=== PATIENT | female | born 1970 | race Caucasian/White ===

== ENCOUNTER → 2018-08-15 | Outpatient (CLI) | payer OTHER ==
[~2018-08-15] MED LIST: Ativan1 MG SL; ESCI5 PO; IBUP600 PO; Norco 5-325 Ta1 EACH PO; Percocet 5-3251 EACH PO; Zofran4 MG PO
[2018-08-15 11:19] LABS: CHOL/HDL RATIO 2.9; Cholesterol 270 mg/dL (50-200); HDL Cholesterol 92 mg/dL (>39); LDL/HDL RATIO 1.8; Low Density Lipoprotein Chol 164 mg/dL (0-110); Triglycerides 71 mg/dL (30-160); Very Low Density Lipoprot Chol 14 mg/dL (6-32)
== END | disposition home or self-care (01) ==
LOC: LAB SHORT 09:54 → LAB 09:54
PROVIDERS: Physician Assistant
DX: Z13.1 Encounter for screening for diabetes mellitus (principal); Z13.220 Encounter for screening for lipoid disorders
CPT/HCPCS: 80061; 83036

== ENCOUNTER 2020-01-03 09:57 | Day surgery (SDC) | payer OTHER ==
[~2020-01-03 09:57] MED LIST changes: +TRAZ50 PO
--- NOTE | 2020-01-03 11:19 | NUR ---
Ambulatory in Day SurgeryPatient states colon prep results clear. History, Chart, Medications and Allergies reviewed before start of procedure.Lungs clear T/O to Auscultation. Patient confirms NPO status and agrees with scheduled surgery. AT BEDSIDE.
--- NOTE | 2020-01-03 12:46 | NUR ---
01/03/20 1246 RONI CORTÉS History, Chart, Medications and Allergies reviewed before start of procedure.3-LEAD EKG REVIEWED WITH PHYSICIAN PRIOR TO START OF PROCEDURE.O2 VIA N/C INTACT THROUGHOUT SEDATION/PROCEDURE. PATIENT DETERMINED TO BE ASA APPROPRIATE FOR PROPOFOL SEDATION PRIOR TO START OF PROCEDURE BY DR. SANDERS. MONITOR INTACT WITH CONTINUOUS PULSE OXIMETRY AND INTERMITTENT BP.
--- NOTE | 2020-01-03 13:36 | NUR ---
Patient up to Ambulate independently. Gait steady. Discharge instructions reviewed with patient. Patient verbalizes understanding. Copy given to patient to take home. Discharged via wheelchair to private car for ride home.
== END 2020-01-03 13:42 | disposition home or self-care (01) ==
LOC: ORSCMMR 09:57 → ORD 11:00 → ORSCMMR 13:42
PROVIDERS: Internal Medicine Gastroenterology
PROC: 0DBN8ZX Excision of Sigmoid Colon, Via Natural or Artificial Opening Endoscopic, Diagnostic (ICD-10-PCS; principal; 2020-01-03 11:00)
DX: Z12.11 Encounter for screening for malignant neoplasm of colon (principal); K64.8 Other hemorrhoids; K64.4 Residual hemorrhoidal skin tags; F32.9 Major depressive disorder, single episode, unspecified; F17.210 Nicotine dependence, cigarettes, uncomplicated; Z79.899 Other long term (current) drug therapy
CPT/HCPCS: 88305; J2704; J7120

== ENCOUNTER → 2021-07-09 | Outpatient (CLI) | payer OTHER | LOC: LAB 13:26 → LAB SHORT 13:26 | DX: L08.9 Local infection of the skin and subcutaneous tissue, unspecified (principal) | CPT/HCPCS: 87070; 87075; 87205 ==

== ENCOUNTER 2023-02-23 19:47 | Emergency (ER) | payer OTHER, BC ==
[~2023-02-23] VITALS: Ht 172.7 cm; Wt 59.0 kg
[2023-02-23 20:16] LABS: BASOPHILS ABSOLUTE AUTO 0.03 K/mm3 (0.00-0.23); BASOPHILS PERCENT AUTO 0 % (0-2); EOSINOPHILS ABSOLUTE AUTO 0.22 K/mm3 (0.00-0.68); EOSINOPHILS PERCENT AUTO 2 % (0-6); Hematocrit 40.7 % (33.0-51.0); Hemoglobin 14.1 g/dL (11.5-16.0); IMMATURE GRAN ABSOLUTE AUTO 0.03 K/mm3 (0.00-0.10); IMMATURE GRAN PERCENT AUTO 0 % (0-1); LYMPHOCYTES ABSOLUTE AUTO 4.41 K/mm3 (0.84-5.20); LYMPHOCYTES PERCENT AUTO 35 % (21-46); MONOCYTES PERCENT AUTO 7 % (4-13); Mean Corpuscular HGB 31.4 pg (26.0-34.0); Mean Corpuscular HGB Conc 34.6 g/dL (31.5-36.5); Mean Corpuscular Volume 91 fL (80-100); Mean Platelet Volume 9.1 fL (9.1-12.4); NEUTROPHILS ABSOLUTE AUTO 7.14 K/mm3 (1.96-9.15); NEUTROPHILS PERCENT AUTO 56 % (41-73); Platelet Count 286 K/mm3 (150-400); RDW Standard Deviation 42.8 fL (35.1-46.3); Red Blood Cell Count 4.49 M/mm3 (3.80-5.20); White Blood Cell Count 12.73 K/mm3 (4.00-11.30)
[2023-02-23 20:47] LABS: Albumin, Blood 3.8 g/dL (3.4-5.0); Albumin/Globulin Ratio 1.1 (0.8-1.8); Bilirubin, Total 0.4 mg/dL (0.1-1.0); Calcium, Blood 9.4 mg/dL (8.5-10.1); Creatinine, Blood 0.61 mg/dL (0.40-1.00); Globulin, Blood 3.6 g/dL (2.2-4.0); Potassium, Blood 3.7 mmol/L (3.5-5.5); Total Protein, Blood 7.4 g/dL (6.4-8.2)
== END 2023-02-23 23:31 | disposition home or self-care (01) ==
LOC: ER 19:47
PROVIDERS: Emergency Medicine
DX: Z77.098 Contact with and (suspected) exposure to other hazardous, chiefly nonmedicinal, chemicals (principal); Z87.891 Personal history of nicotine dependence; Z88.5 Allergy status to narcotic agent; Z79.899 Other long term (current) drug therapy
CPT/HCPCS: 36415; 80053; 85025; 93005; 93010; 99284-25

== ENCOUNTER 2023-05-24 14:05 | Emergency (ER) | payer OTHER ==
[~2023-05-24] VITALS: Ht 172.7 cm; Wt 59.0 kg
[2023-05-24 14:49] LABS: BASOPHILS ABSOLUTE AUTO 0.03 K/mm3 (0.00-0.23); BASOPHILS PERCENT AUTO 0 % (0-2); EOSINOPHILS ABSOLUTE AUTO 0.14 K/mm3 (0.00-0.68); EOSINOPHILS PERCENT AUTO 1 % (0-6); Hematocrit 41.2 % (33.0-51.0); Hemoglobin 14.5 g/dL (11.5-16.0); IMMATURE GRAN ABSOLUTE AUTO 0.03 K/mm3 (0.00-0.10); IMMATURE GRAN PERCENT AUTO 0 % (0-1); LYMPHOCYTES ABSOLUTE AUTO 3.94 K/mm3 (0.84-5.20); LYMPHOCYTES PERCENT AUTO 33 % (21-46); MONOCYTES PERCENT AUTO 5 % (4-13); Mean Corpuscular HGB 31.9 pg (26.0-34.0); Mean Corpuscular HGB Conc 35.2 g/dL (31.5-36.5); Mean Corpuscular Volume 91 fL (80-100); NEUTROPHILS ABSOLUTE AUTO 7.36 K/mm3 (1.96-9.15); NEUTROPHILS PERCENT AUTO 61 % (41-73); Platelet Count 304 K/mm3 (150-400); RDW Coefficient Variation 13.1 % (11.7-14.2); RDW Standard Deviation 43.5 fL (35.1-46.3); Red Blood Cell Count 4.55 M/mm3 (3.80-5.20)
[2023-05-24 15:01] LABS: Source, Urine Clean Catch
[2023-05-24 15:06] LABS: Appearance, Urine Clear (Clear); Bilirubin, Urine Neg (Neg); Blood, Urine Neg (Neg); Glucose Qualitative, Urine Neg (Neg); Ketones, Urine Neg (Neg); Leukocyte Esterase, Urine Neg (Neg); Nitrite, Urine Neg (Neg); Protein, Urine Neg (Neg); Urobilinogen, Urine NORM (Normal)
[2023-05-24 15:16] LABS: Albumin, Blood 4.3 g/dL (3.4-5.0); Albumin/Globulin Ratio 1.2 (0.8-1.8); Bilirubin, Total 0.7 mg/dL (0.1-1.0); Bun/Creatinine Ratio 20.9 (12.0-20.0); Calcium, Blood 9.5 mg/dL (8.5-10.1); Creatinine, Blood 0.72 mg/dL (0.40-1.00); Globulin, Blood 3.5 g/dL (2.2-4.0); Potassium, Blood 3.6 mmol/L (3.5-5.5); Total Protein, Blood 7.8 g/dL (6.4-8.2)
[2023-05-24 15:49] LABS: Color, Urine Pale Yellow (P-Yellow)
[2023-05-24 16:30] VITALS: BP 110/56
[2023-05-24] MEDS ORDERED: Aspirin EC81 MG PO (17:23)
== END 2023-05-24 17:28 | disposition home or self-care (01) ==
LOC: ER 14:05
PROVIDERS: Student in an Organized Health Care Education/Training Program
DX: R41.0 Disorientation, unspecified (principal); Z88.5 Allergy status to narcotic agent; F17.210 Nicotine dependence, cigarettes, uncomplicated
CPT/HCPCS: 70450; 80053; 81003; 82947; 83735; 85025; 93005; 93010; 99285-25; A9270; G0480

== ENCOUNTER 2024-04-28 17:13 | Emergency (ER) | payer OTHER ==
[~2024-04-28] VITALS: Ht 172.7 cm; Wt 63.5 kg
[~2024-04-28 17:13] MED LIST changes: +Aspirin EC81 MG PO
[2024-04-28 18:01] VITALS: BP 141/85
== END 2024-04-28 18:08 | disposition home or self-care (01) ==
LOC: ER 17:13
DX: Z45.09 Encounter for adjustment and management of other cardiac device (principal); F17.210 Nicotine dependence, cigarettes, uncomplicated; Z88.5 Allergy status to narcotic agent; Z79.82 Long term (current) use of aspirin
CPT/HCPCS: 99282

== ENCOUNTER 2025-03-31 11:30 | Emergency (ER) | payer OTHER ==
[~2025-03-31] VITALS: Ht 172.7 cm; Wt 61.2 kg
[2025-03-31 12:09] LABS: BASOPHILS ABSOLUTE AUTO 0.02 K/mm3 (0.00-0.23); BASOPHILS PERCENT AUTO 0 % (0-2); EOSINOPHILS ABSOLUTE AUTO 0.26 K/mm3 (0.00-0.68); EOSINOPHILS PERCENT AUTO 2 % (0-6); Hematocrit 39.8 % (33.0-51.0); Hemoglobin 13.9 g/dL (11.5-16.0); IMMATURE GRAN ABSOLUTE AUTO 0.03 K/mm3 (0.00-0.10); IMMATURE GRAN PERCENT AUTO 0 % (0-1); LYMPHOCYTES ABSOLUTE AUTO 4.54 K/mm3 (0.84-5.20); LYMPHOCYTES PERCENT AUTO 37 % (21-46); MONOCYTES ABSOLUTE AUTO 0.47 K/mm3 (0.16-1.47); MONOCYTES PERCENT AUTO 4 % (4-13); Mean Corpuscular HGB 30.6 pg (26.0-34.0); Mean Corpuscular HGB Conc 34.9 g/dL (31.5-36.5); Mean Corpuscular Volume 88 fL (80-100); Mean Platelet Volume 9.1 fL (9.1-12.4); NEUTROPHILS ABSOLUTE AUTO 7.05 K/mm3 (1.96-9.15); NEUTROPHILS PERCENT AUTO 57 % (41-73); Platelet Count 297 K/mm3 (150-400); RDW Coefficient Variation 12.9 % (11.7-14.2); RDW Standard Deviation 41.3 fL (35.1-46.3); Red Blood Cell Count 4.54 M/mm3 (3.80-5.20); White Blood Cell Count 12.37 K/mm3 (4.00-11.30)
[2025-03-31 12:32] LABS: Albumin, Blood 3.7 g/dL (3.4-5.0); Bilirubin, Total 0.7 mg/dL (0.1-1.0); Bun/Creatinine Ratio 16.7 (12.0-20.0); Calcium, Blood 9.7 mg/dL (8.5-10.1); Creatinine, Blood 0.66 mg/dL (0.40-1.00); Globulin, Blood 3.6 g/dL (2.2-4.0); Potassium, Blood 3.6 mmol/L (3.5-5.5); Total Protein, Blood 7.3 g/dL (6.4-8.2)
[2025-03-31 13:58] VITALS: BP 115/78
== END 2025-03-31 13:59 | disposition home or self-care (01) ==
LOC: ER 11:30
PROVIDERS: Emergency Medicine
DX: R42 Dizziness and giddiness (principal); E87.8 Other disorders of electrolyte and fluid balance, not elsewhere classified; F17.210 Nicotine dependence, cigarettes, uncomplicated; Z79.899 Other long term (current) drug therapy
CPT/HCPCS: 70450; 80053; 83690; 84443; 85025; 93005; 93010; 99284-25

== ENCOUNTER 2025-10-15 00:26 | Emergency (ER) | payer OTHER ==
[~2025-10-15] VITALS: Ht 172.7 cm; Wt 62.6 kg
[2025-10-15] MEDS ORDERED: Tambocor100 MG PO (01:38)
[2025-10-15] MEDS ORDERED: PRED20 PO (01:38)
[2025-10-15] MEDS ORDERED: METOPROLOL SUCC25 MG PO (01:38)
[2025-10-15] MEDS ORDERED: CLAR500 PO (01:39)
[2025-10-15 02:00] LABS: BASOPHILS ABSOLUTE AUTO 0.03 K/mm3 (0.00-0.23); BASOPHILS PERCENT AUTO 0 % (0-2); EOSINOPHILS ABSOLUTE AUTO 0.12 K/mm3 (0.00-0.68); EOSINOPHILS PERCENT AUTO 1 % (0-6); Hematocrit 43.1 % (33.0-51.0); Hemoglobin 14.6 g/dL (11.5-16.0); IMMATURE GRAN ABSOLUTE AUTO 0.04 K/mm3 (0.00-0.10); IMMATURE GRAN PERCENT AUTO 0 % (0-1); LYMPHOCYTES ABSOLUTE AUTO 8.60 K/mm3 (0.84-5.20); LYMPHOCYTES PERCENT AUTO 52 % (21-46); MONOCYTES ABSOLUTE AUTO 0.84 K/mm3 (0.16-1.47); MONOCYTES PERCENT AUTO 5 % (4-13); Mean Corpuscular HGB Conc 33.9 g/dL (31.5-36.5); Mean Corpuscular Volume 90 fL (80-100); NEUTROPHILS ABSOLUTE AUTO 6.98 K/mm3 (1.96-9.15); NEUTROPHILS PERCENT AUTO 42 % (41-73); NRBC ABSOLUTE 0.00 K/mm3 (0.00-0.02); NRBC Auto 0.0 /100 WBC (0.0-0.2); Platelet Count 348 K/mm3 (150-400); RDW Coefficient Variation 13.0 % (11.7-14.2); RDW Standard Deviation 42.8 fL (35.1-46.3)
[2025-10-15 02:04] LABS: Alanine Aminotransfer (ALT/SGP 31.0 U/L (12-78); Albumin, Blood 3.8 g/dL (3.4-5.0); Albumin/Globulin Ratio 1.0 (0.8-1.8); Anion Gap 10.0 mmol/L (3-11); Aspartate Aminotrans (AST/SGOT 17.0 U/L (12-37); Bilirubin, Total 0.7 mg/dL (0.1-1.0); Blood Urea Nitrogen 14.0 mg/dL (8-24); CO2, Blood 24.0 mmol/L (21-32); Calcium, Blood 9.7 mg/dL (8.5-10.1); Chloride, Blood 108.0 mmol/L (98-108); Creatinine, Blood 0.63 mg/dL (0.40-1.00); Globulin, Blood 3.8 g/dL (2.2-4.0); Glucose, Blood 115.0 mg/dL (70-99); Potassium, Blood 3.4 mmol/L (3.5-5.5); Sodium, Blood 139.0 mmol/L (136-145); Total Protein, Blood 7.6 g/dL (6.4-8.2)
[2025-10-15 02:22] LABS: Magnesium, Blood 2.4 mg/dL (1.6-2.4); Phosphorus, Blood 2.9 mg/dL (2.5-4.9)
[2025-10-15] MEDS ORDERED: Potassium Chloride 10 Meq Tablet SA PO ONE (04:00)
[2025-10-15 04:30] VITALS: BP 129/82
[2025-10-15] MEDS ORDERED: POTA10T PO (10:42)
== END 2025-10-15 04:53 | disposition home or self-care (01) ==
LOC: ER 00:26
PROVIDERS: Emergency Medicine
DX: E87.6 Hypokalemia (principal); R00.2 Palpitations; Z59.89 Other problems related to housing and economic circumstances; Z88.5 Allergy status to narcotic agent; Z88.8 Allergy status to other drugs, medicaments and biological substances; Z88.1 Allergy status to other antibiotic agents
CPT/HCPCS: 71046; 80053; 83690; 83735; 84100; 84484; 85025; 93005; 93010; 99285-25; A9270

== ENCOUNTER 2025-10-15 10:14 | Day surgery (SDC) | payer OTHER ==
[~2025-10-15] VITALS: Ht 172.7 cm; Wt 63.8 kg
[~2025-10-15 10:14] MED LIST changes: +CLAR500 PO; +METOPROLOL SUCC25 MG PO; +PRED20 PO; +Tambocor100 MG PO; +Tranexamic Acid 100 ML IV ONE
[2025-10-15] MEDS ORDERED: POTA10T PO (10:42)
[2025-10-15] MEDS ORDERED: Lidocaine 1%-Epineph 1:200000 30 ML SDV ONE (11:30)
[2025-10-15] MEDS ORDERED: EPINEPhrine HCl 1 MG / ML 30ML Vial ONE (11:30)
[2025-10-15] MEDS ORDERED: FentaNYL Citrate 50 MCG/ML 2 ML Injection ONE ×3 (11:50→14:41)
[2025-10-15] MEDS ORDERED: Ondansetron HCl 2 MG / ML 2ML Vial ONE ×2 (11:51→15:34)
[2025-10-15] MEDS ORDERED: Rocuronium Bromide 10 MG/ML 5ML Injection IV ONE (11:51)
[2025-10-15] MEDS ORDERED: Dexamethasone Sod Phos 10 MG/ML 1ML VIAL ONE (11:51)
--- NOTE | 2025-10-15 12:17 | NUR ---
10/15/25 Erica Sanchez PATIENT WAS EVALUATED IN THE EMERGENCY ROOM EARLY THIS MORNING FOR C/O HEART PALPITATIONS AND FEELING LIKE HER HEART WAS RACING. PT REPORTED SHE WAS IN THE ER FROM APPROXIMATELY MIDNIGHT UNTIL AROUND 5AM THIS MORNING. ALL ER RECORDS, LABS, AND EKG REPORT FROM THIS VISIT WERE PRINTED AND PLACED IN CHART FOR ANESTHESIA REVIEW AND DR COFFEY WAS VERBALIZED ADVISED OF PT'S ER VISIT. PT HAS A CARDIAC CLEARANCE AND ANESTHESIA REVIEW ALREADY IN CHART FOR TODAY'S SURGERY DUE TO SIMILAR SYMPTOMS/CARDIAC EVENTS. 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 RHYTHM STRIP WAS OBTAINED WHEN PT FIRST BROUGHT INTO PREOP AND HEART APPEARS TO BE IN A NORMAL RHYTHM. ER EKG SHOWED FREQUENT PVCS AND PSVCS AND POTASSIUM WAS FOUND TO BE SLIGHTLY LOW AT 3.4. PT WAS GIVEN 20MEQ POTASSIUM IN THE ER. AFTER THOROUGH REVIEW AND ASSESSMENT BY ANESTHESIOLOGIST DR COFFEY, IT WAS ELECTED TO PROCEED WITH CASE.
[2025-10-15] MEDS ORDERED: ePHEDrine Sulfate 50 MG/ML 1ML Injection ONE (12:24)
--- NOTE | 2025-10-15 14:39 | NUR ---
10/15/25 1439 Giselle [address] REPORT FROM DR COFFEY, ANESTHESIA AND [place] FROM OR. STS PT WAS IN ER THIS MORNING FOR C/O "PALPITATIONS". DR COFFEY STS PT HAD SOME VENTRICULAR BIGEMINY AND TACHYCARDIA IN OR, WHILE INTUBATED. STS HAD EKG IN ER THIS AM WELL PREOPERATIVELY AND CLEARED, NSR.
[2025-10-15 15:00] VITALS: BP 138/78
--- NOTE | 2025-10-15 15:14 | NUR ---
10/15/25 15[address] ALEX AT BEDSIDE. PT REPORTS PAIN TOLERABLE (THROAT/NOSE) AT 3/10. PT ALSO REPORTS FEELS ABLE TO BREATHE BETTER. SATS 97% AND ABOVE.
== END 2025-10-15 16:10 | disposition home or self-care (01) ==
LOC: ORSCSDS 10:14
PROVIDERS: Otolaryngology
PROC: 09DU4ZZ Extraction of Right Ethmoid Sinus, Percutaneous Endoscopic Approach (ICD-10-PCS; principal; 2025-10-15 12:00)
PROC: 09DV4ZZ Extraction of Left Ethmoid Sinus, Percutaneous Endoscopic Approach (ICD-10-PCS; principal; 2025-10-15 12:00)
DX: J32.8 Other chronic sinusitis (principal); J30.89 Other allergic rhinitis; F17.210 Nicotine dependence, cigarettes, uncomplicated; K21.9 Gastro-esophageal reflux disease without esophagitis; Z79.899 Other long term (current) drug therapy; I45.6 Pre-excitation syndrome
CPT/HCPCS: 88305; A9270; C2625; J0165; J1100; J2405; J2704; J3010; J7120

== ENCOUNTER 2025-10-21 09:28 | Observation (INO) | payer OTHER ==
[~2025-10-21] VITALS: Ht 172.7 cm; Wt 61.6 kg
[~2025-10-21 09:28] MED LIST changes: +POTA10T PO; -Tranexamic Acid 100 ML IV ONE
[2025-10-21 10:13] LABS: Hematocrit 38.9 % (33.0-51.0); Hemoglobin 13.3 g/dL (11.5-16.0); Mean Corpuscular HGB Conc 34.2 g/dL (31.5-36.5); Mean Corpuscular Volume 89 fL (80-100); NRBC ABSOLUTE 0.00 K/mm3 (0.00-0.02); NRBC Auto 0.0 /100 WBC (0.0-0.2); Platelet Count 327 K/mm3 (150-400); RDW Coefficient Variation 12.9 % (11.7-14.2); RDW Standard Deviation 42.6 fL (35.1-46.3)
[2025-10-21 10:39] LABS: BAND PERCENT MAN 2 % (0-8); BASOPHILS ABSOLUTE MAN 0.00 K/mm3 (0.00-0.23); BASOPHILS PERCENT MAN 0 % (0-2); EOSINOPHILS ABSOLUTE MAN 0.24 K/mm3 (0.00-0.68); EOSINOPHILS PERCENT MAN 1 % (0-6); LYMPHOCYTES ABSOLUTE MAN 3.20 K/mm3 (0.84-5.20); LYMPHOCYTES PERCENT MAN 13 % (21-46); MONOCYTES ABSOLUTE MAN 1.47 K/mm3 (0.16-1.47); MONOCYTES PERCENT MAN 6 % (4-13); NEUTROPHILS ABSOLUTE MAN 19.70 K/mm3 (1.96-9.15); SEG NEUTROPHILS PERCENT MAN 78 % (41-73)
[2025-10-21 10:47] LABS: Alanine Aminotransfer (ALT/SGP 14.0 U/L (12-78); Albumin, Blood 3.3 g/dL (3.4-5.0); Albumin/Globulin Ratio 0.9 (0.8-1.8); Anion Gap 8.0 mmol/L (3-11); Aspartate Aminotrans (AST/SGOT 8.0 U/L (12-37); Bilirubin, Total 0.4 mg/dL (0.1-1.0); Blood Urea Nitrogen 16.0 mg/dL (8-24); CO2, Blood 25.0 mmol/L (21-32); Calcium, Blood 9.2 mg/dL (8.5-10.1); Chloride, Blood 105.0 mmol/L (98-108); Creatinine, Blood 0.69 mg/dL (0.40-1.00); Globulin, Blood 3.5 g/dL (2.2-4.0); Glucose, Blood 90.0 mg/dL (70-99); Potassium, Blood 3.4 mmol/L (3.5-5.5); Sodium, Blood 135.0 mmol/L (136-145); Total Protein, Blood 6.8 g/dL (6.4-8.2)
[2025-10-21 11:02] LABS: Magnesium, Blood 2.2 mg/dL (1.6-2.4); Phosphorus, Blood 2.2 mg/dL (2.5-4.9)
[2025-10-21] MEDS ORDERED: FLU VACC TS2025-26(6MOS UP)/PF 45 MCG/0.5 ML SYRINGE IM SCH (14:45)
[2025-10-21 16:31] VITALS: BP 122/68
[2025-10-21] MEDS ORDERED: Norco 5-325 Ta1 EACH PO (17:05)
--- NOTE | 2025-10-21 18:45 | NUR ---
ADMIT PT ADMITTED TODAY FROM ED D/T C/P AND DIZZINESS AT HOME THIS MORNING, DENIES C/P AT THIS TIME. TELE APPLIED SR 73, RA, VSS. PLAN FOR ECHO TOMORROW. PT ORIENTED TO ROOM AND CALL LIGHT IN REACH.
[2025-10-21] MEDS ORDERED: ACET500 PO (19:37)
[2025-10-21 20:26] VITALS: BP 119/97
[2025-10-22 00:15] VITALS: BP 147/92
--- NOTE | 2025-10-22 02:23 | NUR ---
ECG 0016 CALLED BY TELEMETRY, MAKENZIE, NOTIFIED NSR HAS CONVERTED, SHORT NV INTERVAL, QRS COMPLEX CHANGE ([place]). PT WAS SLEEPING AT RHYTHM CHANGE. THIS RN WOKE PT, WHO DECLINES ANY CHEST PAIN, SOB, PALPITATIONS, DIZZINESS, OR OTHER RELATED SYMPTOMS. ECG DONE WITH DR. 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 ADVISES THIS RN TO MONITOR PATIENT SYMPTOMATICALLY, TELEMETRY, AND CONTINUE PLAN FOR ECHO NM STRESS TEST IN AM. PT CURRENTLY NPO AND VERBALIZES AGREEMENT WITH PLAN.
[2025-10-22 06:13] LABS: BASOPHILS ABSOLUTE AUTO 0.03 K/mm3 (0.00-0.23); BASOPHILS PERCENT AUTO 0 % (0-2); EOSINOPHILS ABSOLUTE AUTO 0.20 K/mm3 (0.00-0.68); EOSINOPHILS PERCENT AUTO 2 % (0-6); Hematocrit 40.2 % (33.0-51.0); Hemoglobin 13.4 g/dL (11.5-16.0); IMMATURE GRAN ABSOLUTE AUTO 0.04 K/mm3 (0.00-0.10); IMMATURE GRAN PERCENT AUTO 0 % (0-1); LYMPHOCYTES ABSOLUTE AUTO 4.39 K/mm3 (0.84-5.20); LYMPHOCYTES PERCENT AUTO 43 % (21-46); MONOCYTES ABSOLUTE AUTO 0.77 K/mm3 (0.16-1.47); MONOCYTES PERCENT AUTO 8 % (4-13); Mean Corpuscular HGB Conc 33.3 g/dL (31.5-36.5); Mean Corpuscular Volume 90 fL (80-100); NEUTROPHILS ABSOLUTE AUTO 4.70 K/mm3 (1.96-9.15); NEUTROPHILS PERCENT AUTO 46 % (41-73); NRBC ABSOLUTE 0.00 K/mm3 (0.00-0.02); NRBC Auto 0.0 /100 WBC (0.0-0.2); Platelet Count 296 K/mm3 (150-400); RDW Coefficient Variation 13.1 % (11.7-14.2); RDW Standard Deviation 43.0 fL (35.1-46.3)
--- NOTE | 2025-10-22 06:22 | NUR ---
SHIFT SUMMARY CONVERTED FROM NSR TO WPW ON TELE OVERNIGHT. 12-LEAD ECG SHARED WITH DR. CANO WHO IS AT BEDSIDE AT 0019. PLAN FOR ECHO & STRESS TEST TODAY. PT REPORTS RESOLVED LUMP IN CHEST SENSATION, NOTING NO SYMPTOMS REGARDING EPISODE OVERNIGHT. DOES HAVE CONTINUED SINUS PAIN FOLLOWING RECENT SINUS PROCEDURE IN THE PAST 2 WEEKS. HAS BEEN ON PREDNISONE POST-OP. TOLERATING HEART HEALTHY DIET WELL, NPO SINCE MIDNIGHT. A&OX4. INDEPENDENT IN ROOM. 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 IV IN LAC PATENT.
[2025-10-22 06:38] LABS: Alanine Aminotransfer (ALT/SGP 14.0 U/L (12-78); Albumin, Blood 3.0 g/dL (3.4-5.0); Albumin/Globulin Ratio 0.8 (0.8-1.8); Anion Gap 7.0 mmol/L (3-11); Aspartate Aminotrans (AST/SGOT 9.0 U/L (12-37); Bilirubin, Total 0.4 mg/dL (0.1-1.0); Blood Urea Nitrogen 14.0 mg/dL (8-24); CO2, Blood 27.0 mmol/L (21-32); Calcium, Blood 9.4 mg/dL (8.5-10.1); Chloride, Blood 109.0 mmol/L (98-108); Creatinine, Blood 0.66 mg/dL (0.40-1.00); Globulin, Blood 3.6 g/dL (2.2-4.0); Glucose, Blood 91.0 mg/dL (70-99); Magnesium, Blood 2.2 mg/dL (1.6-2.4); Phosphorus, Blood 4.3 mg/dL (2.5-4.9); Potassium, Blood 4.3 mmol/L (3.5-5.5); Sodium, Blood 139.0 mmol/L (136-145); Total Protein, Blood 6.6 g/dL (6.4-8.2)
[2025-10-22 07:55] VITALS: BP 114/68
[2025-10-22] MEDS ORDERED: Enoxaparin 40 MG/0.4 ML SYR SC SCH (09:00)
[2025-10-22 11:34] VITALS: BP 120/76
[2025-10-22 16:37] VITALS: BP 111/71
--- NOTE | 2025-10-22 19:23 | NUR ---
DISCHARGE SUMMARY: A&Ox4. PLEASANT AND COOPERATIVE WITH CARE. CALLS APPROPRIATELY AND IS ABLE TO ADVOCATE NEEDS EFFECTIVELY. AMBULATES INDEPENDENTLY. CONTINENT OF BOWEL AND BLADDER; LBM TODAY. MEDS WHOLE c FLUIDS. TELE WPW c BBB. PAIN FACIAL AND HEADACHE SECONDARY TO RECENT SINUS SURGERY. PATIENT PROVIDED WITH COPY OF DISCHARGE PLAN AND MEDICATION LIST. MED REC FAXED TO PHARMACY. INSTRUCTED TO FOLLOW-UP WITH PCP. ALL QUESTIONS ANSWERED TO DISCHARGING NURSE'S ABILITY AND PATIENT VOICED UNDERSTANDING OF DISCHARGE PLAN. IV REMOVED AND PRESSURE DRESSING PLACED. LEFT FLOOR WITH ALL BELONGINGS AND DISCHARGE PACKET, ESCORTED BY . TRANSPORTATION PROVIDED BY VIA POV.
== END 2025-10-22 17:13 | disposition home or self-care (01) ==
LOC: ER 09:28 → MEDS 09:29
PROVIDERS: Student in an Organized Health Care Education/Training Program; ADMIT Internal Medicine
DX: R07.89 Other chest pain (principal); Z88.5 Allergy status to narcotic agent; F17.210 Nicotine dependence, cigarettes, uncomplicated; I45.6 Pre-excitation syndrome; E78.5 Hyperlipidemia, unspecified; F10.21 Alcohol dependence, in remission
CPT/HCPCS: 36415; 71046; 78452; 80053; 83735; 84100; 84484; 85025; 93005; 93010; 93017; 93306; 99285-25; A9270; A9500; G0378